=== PATIENT | female | born 1970 | race Caucasian/White ===

== ENCOUNTER → 2016-11-26 | Outpatient (CLI) | payer MEDICARE ==
[~2016-11-26] MED LIST: FLUT16SP2 NS; METO-239 PO; OMEP1CAP18 PO; TOPI100T42 PO; VENL25TA PO
[2016-11-26] MEDS: GADOBUTROL 7.5 MMOL/7.5 ML VIAL IV ONE (15:13)
--- NOTE | 2016-11-26 15:53 | KCIC ---
MRI brain with and without gadolinium dated 11/26/2016 Indication: Headaches and visual disturbances Comparison: CT head November 16, 2013. Technical: Multiplanar, multisequence MR imaging of the brain was performed without intravenous contrast. Findings: Scalp and calvaria are intact. Sella and suprasellar cistern appear normal. Corpus callosum is intact. There is normal signal intensity involving the brain parenchyma with normal carvajal-white matter differentiation. Brainstem is normal in appearance. Ventricles are normal in morphology without evidence for hydrocephalus. Large vessel vascular flow voids are preserved. There is no diffusion signal hyperintensity to suggest acute or subacute ischemia there is no susceptibility artifact to suggest acute or chronic hemorrhage. There is no suspicious enhancement identified. Orbits are normal in appearance. Paranasal sinuses are well aerated. Mastoid air cells are well aerated. Visualized portion of the upper cervical spine is normal. IMPRESSION: No evidence for acute or subacute ischemia. Electronically signed by: Radha Rodriguez MD (11/26/2016 3:50 PM) [id number]
== END | disposition home or self-care (01) ==
LOC: KCIC MRI 14:37
PROVIDERS: ATTEND Psychiatry & Neurology Neurology
DX: H51.8 Other specified disorders of binocular movement (principal); R51 Headache
CPT/HCPCS: 70553; A9585